=== PATIENT | male | born 1970 | race Caucasian/White ===

== ENCOUNTER 2016-12-23 01:33 | Inpatient (IN) | payer SELFPAY ==
[2016-12-23] VITALS (22 sets, daily range): BP systolic 113–157; BP diastolic 54–110; PULSE 36–84; RESP 14–18; TEMP 97.7–98.9; O2SAT 94–98
[~2016-12-23] VITALS: Ht 177.8 cm; Wt 92.6 kg
[2016-12-23] MEDS ORDERED: LISI40TA PO (01:44)
[2016-12-23] MEDS ORDERED: SODIUM CHLORIDE 0.9% FLUSH 10 ML FLUSH IVF PRN ×2 (02:00→05:00)
[2016-12-23] MEDS ORDERED: ASPIRIN 81 MG CHEW TAB PO ONE (02:00)
[2016-12-23] MEDS: NITROGLYCERIN 0.4 MG SL 25 TABS/BTL SL SCH ×2 (02:07→02:12)
[2016-12-23] MEDS: SODIUM CHLOR 0.9% 1000 ML INJ 1,000 ML IV SCH ×2 (02:10→12:00)
--- NOTE | 2016-12-23 02:12 | RADRPT ---
EXAM DATE/TIME: 12/23/2016 02:05 [facility] COMPARISON: No previous studies available for comparison. INDICATIONS : Chest pain for 1 hour MEDICAL HISTORY : Hypertension. SURGICAL HISTORY : None. ENCOUNTER: Initial ACUITY: 1 day PAIN SCORE: 6/10 LOCATION: Bilateral upper chest FINDINGS: A single view of the chest demonstrates the lungs to be symmetrically aerated without evidence of mas s, infiltrate or effusion. The cardiomediastinal contours are unremarkable. Osseous structures are intact. CONCLUSION: Normal examination. Joe Gutierrez MD on December 23, 2016 at 2:10 Board Certified Radiologist. This report was verified electronically.
[2016-12-23 02:39] LABS: BASOPHIL % 0.4 % (0.0-2.0); EOSINOPHIL # 0.2 TH/MM3 (0-0.4); HEMATOCRIT 51.6 % (39.0-51.0); HEMO FLAGS DIFF FINAL; LYMPH % 40.7 % (9.0-44.0); LYMPHOCYTE # 4.3 TH/MM3 (1.0-4.8); MEAN CELL VOLUME 85.4 FL (80.0-100.0); MEAN CORPUSCULAR HEMOGLOBIN 28.8 PG (27.0-34.0); MEAN CORPUSCULAR HGB CONC 33.7 % (32.0-36.0); MONO % 9.4 % (0.0-8.0); NEUT % 47.5 % (16.0-70.0); PLATELET COUNT 210 TH/MM3 (150-450); RED BLOOD COUNT 6.04 MIL/MM3 (4.50-5.90); RED CELL DISTRIBUTION WIDTH 12.4 % (11.6-17.2); WHITE BLOOD COUNT 10.5 TH/MM3 (4.0-11.0)
[2016-12-23 02:46] LABS: CHLORIDE 106 MEQ/L (98-107); SODIUM (NA) 140 MEQ/L (136-145)
[2016-12-23 02:49] LABS: ANION GAP 8 MEQ/L (5-15); BICARBONATE 26.2 MEQ/L (21.0-32.0); MAGNESIUM 2.4 MG/DL (1.5-2.5)
[2016-12-23 02:50] LABS: BLOOD UREA NITROGEN 17 MG/DL (7-18)
[2016-12-23 02:53] LABS: GLOMERULAR FILTRATION RATE 86 ML/MIN (>89)
[2016-12-23 02:56] LABS: CREATINE KINASE 180 U/L (39-308)
[2016-12-23 03:00] LABS: APTT (PATIENT) 26.9 SEC (24.3-30.1); INTERNATIONAL NORMALIZED RATIO 1.1 RATIO; PROTHROMBIN TIME - PATIENT 11.7 SEC (9.8-11.6)
[2016-12-23 03:08] LABS: CKMB LESS THAN 0.5 NG/ML (0.5-3.6)
[2016-12-23] MEDS ORDERED: KETOROLAC TROMETHAMINE 30 MG/ML (IVP) VIAL IV PUSH ONE (03:45)
--- NOTE | 2016-12-23 03:50 | PD ---
HPI Chief Complaint: Chest Pain Time Seen by Provider: 01:50 Travel History International Travel<30 days: No Contact w/Intl Traveler<30days: No Traveled to known affect area: No History of Present Illness HPI 46-year-old male presents to the emergency department by private transportation for evaluation of chest pain. Patient reports chest pain across the anterior chest with mild radiation to the back associated with shortness of breath. He should states pain awakened him from sleep approximately one hour prior to arrival to the emergency department. Patient does have history of hypertension for which she is prescribed lisinopril and has been taking as prescribed. Patient denies personal history of CAD diabetes dyslipidemia or tobaccoism. Patient does have family history of cardiac disease in his father that began in his 60s. Patient states he also recently traveled from [place] with his family. Patient denies any pain or swelling of the lower extremities at this time. Patient states he did note some soreness of his legs bilaterally while he was in [place] that he attributes it to a lot of walking. Currently chest pain is 8/10 in intensity. Patient also notes some referred discomfort to the upper extremities. Patient denies any nausea vomiting or abdominal pain. Patient has had cardiac evaluation today includes a normal stress test. Patient has taken no medications prior to arrival to the emergency department. [facility] Past Medical History Narrative Medical Hypertension inguinal herniorrhaphy occasional alcohol use; family history CAD; nursing notes reviewed Diminished Hearing: No Hypertension: Yes Inguinal Hernia: Yes Tetanus Vaccination: Unknown Influenza Vaccination: No Past Surgical History Abdominal Surgery: Yes (inguinal hernia repair) Social History Alcohol Use: Yes (socially) Tobacco Use: No Substance Use: No Allergies-Medications (Allergen,Severity, Reaction): Coded Allergies: No Known Allergies (Unverified , 12/23/16) Reported Meds & Prescriptions Reported Meds & Active Scripts Active Reported Lisinopril 40 Mg Tab 40 Mg PO DAILY Review of Systems Except as stated in HPI: all other systems reviewed are Neg General / Constitutional: No: Fever Eyes: No: Visual changes HENT: No: Headaches, Neck Pain Cardiovascular: Positive: Chest Pain or Discomfort, No: Diaphoresis Respiratory: Positive: Shortness of Breath, Pleuritic Pain Gastrointestinal: No: Vomiting, Abdominal Pain Genitourinary: No: Flank Pain Musculoskeletal: Positive: Cramping, No: Myalgias, Arthralgias, Edema Skin: No Rash Neurologic: No: Weakness Psychiatric: No: Anxiety Hematologic/Lymphatic: No: Lymph Node Enlargement Physical Exam Narrative GENERAL: Well-developed well-nourished male in no acute distress no respiratory distress SKIN: Warm and dry. HEAD: Normocephalic. EYES: No scleral icterus. No injection or drainage. NECK: Supple, trachea midline. No JVD or lymphadenopathy. CARDIOVASCULAR: Regular rate and rhythm without murmurs, gallops, or rubs. RESPIRATORY: Breath sounds equal bilaterally. No accessory muscle use. GASTROINTESTINAL: Abdomen soft, non-tender, nondistended. MUSCULOSKELETAL: No cyanosis, or edema. BACK: Nontender without obvious deformity. No CVA tenderness. Data Data Last Documented VS Vital Signs Date Time Temp Pulse Resp B/P (MAP) Pulse Ox O2 Delivery O2 Flow Rate FiO2 12/23/16 04:30 97.7 62 18 119/72 (88) 95 Room Air Orders Orders Electrocardiogram (12/23/16 01:50) Basic Metabolic Panel (Bmp) (12/23/16 01:50) B-Type Natriuretic Peptide (12/23/16 01:50) Ckmb (Isoenzyme) Profile (12/23/16 01:50) Complete Blood Count With Diff (12/23/16 01:50) D-Dimer (12/23/16 01:50) Magnesium (Mg) (12/23/16 01:50) Prothrombin Time / Inr (Pt) (12/23/16 01:50) Act Partial Throm Time (Ptt) (12/23/16 01:50) Troponin I (12/23/16 01:50) Chest, Single Ap (12/23/16 01:50) Ecg Monitoring (12/23/16 01:50) Bilateral Bp Monitoring (12/23/16 01:50) Iv Access Insert/Monitor (12/23/16 01:50) Oximetry (12/23/16 01:50) Oxygen Administration (12/23/16 01:50) Aspirin Chew (Aspirin Chew) (12/23/16 02:00) Sodium Chloride 0.9% Flush (Ns Flush) (12/23/16 02:00) Nitroglycerin Sl (Nitrostat Sl) (12/23/16 02:00) Sodium Chlor 0.9% 1000 Ml Inj (Ns 1000 M (12/23/16 02:00) CKMB (12/23/16 01:45) CKMB% (12/23/16 01:45) Ketorolac Inj (Toradol Inj) (12/23/16 03:45) Admit Order (Ed Use Only) (12/23/16 ) ^ Saline Lock (12/23/16 04:49) Resp Oxygen Juliano C Titrat 1-4 L (12/23/16 ) Notify Dr: Other (12/23/16 04:49) Sodium Chloride 0.9% Flush (Ns Flush) (12/23/16 09:00) Sodium Chloride 0.9% Flush (Ns Flush) (12/23/16 05:00) Labs Laboratory Tests Test 12/23/16 01:45 White Blood Count 10.5 TH/MM3 Red Blood Count 6.04 MIL/MM3 Hemoglobin 17.4 GM/DL Hematocrit 51.6 % Mean Corpuscular Volume 85.4 FL Mean Corpuscular Hemoglobin 28.8 PG Mean Corpuscular Hemoglobin Concent 33.7 % Red Cell Distribution Width 12.4 % Platelet Count 210 TH/MM3 Mean Platelet Volume 8.9 FL Neutrophils (%) (Auto) 47.5 % Lymphocytes (%) (Auto) 40.7 % Monocytes (%) (Auto) 9.4 % Eosinophils (%) (Auto) 2.0 % Basophils (%) (Auto) 0.4 % Neutrophils # (Auto) 5.0 TH/MM3 Lymphocytes # (Auto) 4.3 TH/MM3 Monocytes # (Auto) 1.0 TH/MM3 Eosinophils # (Auto) 0.2 TH/MM3 Basophils # (Auto) 0.0 TH/MM3 CBC Comment DIFF FINAL Differential Comment Prothrombin Time 11.7 SEC Prothromb Time International Ratio 1.1 RATIO Activated Partial Thromboplast Time 26.9 SEC D-Dimer Quantitative (PE/DVT) 0.28 MG/L FEU Blood Urea Nitrogen 17 MG/DL Creatinine 0.94 MG/DL Random Glucose 142 MG/DL Calcium Level 8.9 MG/DL Magnesium Level 2.4 MG/DL Sodium Level 140 MEQ/L Potassium Level 4.0 MEQ/L Chloride Level 106 MEQ/L Carbon Dioxide Level 26.2 MEQ/L Anion Gap 8 MEQ/L Estimat Glomerular Filtration Rate 86 ML/MIN Total Creatine Kinase 180 U/L Creatine Kinase MB LESS THAN 0.5 NG/ML Troponin I 0.03 NG/ML B-Type Natriuretic Peptide 0 PG/ML MDM Medical Decision Making Medical Screen Exam Complete: Yes Emergency Medical Condition: Yes Medical Record Reviewed: Yes Interpretation(s) EKG normal sinus rhythm rate [address] elevation injury or ischemic changes no ectopy noted; normal axis and intervals Troponin I: 0.03, not elevated; CK: 180, not elevated; BNP: 0 d-dimer: 0.28, not elevated Last Impressions Chest X-Ray 12/23/16 0150 Signed Impressions: Service Date/Time: Friday, December 23, 2016 02:05 - CONCLUSION: Normal examination. Joe Gutierrez MD CBC & BMP Diagram 12/23/16 01:45 Calcium Level 8.9, Magnesium Level 2.4 Vital Signs Date Time Temp Pulse Resp B/P (MAP) Pulse Ox O2 Delivery O2 Flow Rate FiO2 12/23/16 04:30 97.7 62 18 119/72 (88) 95 Room Air 12/23/16 03:30 76 18 135/73 (93) 95 Room Air 12/23/16 02:22 70 17 138/73 (94) 94 Room Air 12/23/16 02:18 44 17 117/54 (75) 97 Room Air 12/23/16 02:13 36 17 118/54 (75) 96 Room Air 12/23/16 02:06 84 18 154/93 (113) 94 Room Air 12/23/16 02:00 78 140/90 (107) 137/97 (110) 12/23/16 01:42 97 Room Air 12/23/16 01:42 98.9 72 18 157/110 (126) Differential Diagnosis Chest pain, ACS, myocardial infarction, arrhythmia, aortic dissection, PE, musculoskeletal pain, atypical cholecystitis Narrative Course 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 EKG shows no acute ST elevation or injury pattern Patient given aspirin 162 mg by mouth Patient administered times one sublingual nitroglycerin for chest pain 8/10 in intensity decreased to 3/10 intensity however patient had a vasovagal associated event after receiving nitroglycerin causing him to have sinus bradycardia and hypotension patient was placed supine given fluid bolus and had quick recovery to sinus rhythm with normal range blood pressure It is 3:45 AM labs values are found to be grossly within normal range specifically troponin I is 0.03 and CK is 180; CBC is remarkable for elevated hemoglobin hematocrit 17.4/51.6%; random glucose 142; d-dimer is 0.28 not elevated; chest x-ray reveals no acute abnormality; Patient is aware of lab results and pain free at this time . Physician Communication Physician Communication will obs admit to [facility] discussed with [place] Diagnosis Primary Impression: Chest pain Qualified Codes: R07.2 - Precordial pain Admitting Information Admitting Physician Requests: Observation Jessy Bradshaw MD Dec 23, 2016 03:50
[2016-12-23] MEDS ORDERED: SODIUM CHLORIDE 0.9% FLUSH 10 ML FLUSH IV FLUSH PRN (05:00)
[2016-12-23] MEDS ORDERED: CETI10 PO (05:32)
[2016-12-23 05:49] LABS: CREATINE KINASE 163 U/L (39-308)
[2016-12-23 06:04] LABS: CKMB 4.2 NG/ML (0.5-3.6)
[2016-12-23] MEDS ORDERED: HEPARIN-D5W 25,000 U/250 ML 250 ML IV PRN (06:21)
[2016-12-23 06:54] LABS: HEMATOCRIT 46.9 % (39.0-51.0); MEAN CELL VOLUME 85.3 FL (80.0-100.0); MEAN CORPUSCULAR HEMOGLOBIN 28.7 PG (27.0-34.0); MEAN CORPUSCULAR HGB CONC 33.7 % (32.0-36.0); PLATELET COUNT 199 TH/MM3 (150-450); RED CELL DISTRIBUTION WIDTH 12.5 % (11.6-17.2); REVIEW FLAG FINAL; WHITE BLOOD COUNT 10.1 TH/MM3 (4.0-11.0)
[2016-12-23 07:05] LABS: APTT (PATIENT) 21.2 SEC (24.3-30.1); PROTHROMBIN TIME - PATIENT 10.5 SEC (9.8-11.6)
--- NOTE | 2016-12-23 07:53 | PD.CONS ---
HPI Service CV Consult Requested By Reason for Consult chest pain Primary Care Physician No Primary Care Physician History of Present Illness Here with HTN admitted for chest pain. He states he was awoken at 1230 this morning with retrosternal chest pressure. He also had bilateral upper extremity numbness. He did not fell well. This lasted about one hour. He had an cardiac evaluation for shortness of breath on exertion about 5 years ago. (Narayan Shelton) Review of Systems Consitutional: DENIES: Fatigue, Fever, Chills, Weight gain, Weight loss Eyes: DENIES: Amaurosis Fugax, Change in vision HEENT: DENIES: Lightheadedness, Change in hearing Respiratory: DENIES: See HPI, Cough, Snoring, Shortness of breath, Wheezing, Sputum production Cardiovascular: COMPLAINS OF: Chest pain Gastrointestinal: DENIES: Nausea, Vomiting, Change in bowel habits, Reflux, Bloody stools, Melena Genitourinary: DENIES: Urinary incontinence, Difficulty voiding Integumentary: DENIES: Rash Neurologic: DENIES: Tingling or numbness, Memory problems, Poor Balance, Stroke symptoms Musculoskeletal: DENIES: Joint pain, Muscle pain, Limited range of motion, Back pain Psychiatric: DENIES: Anxiety, Depression, Sleep disturbances Hematologic: DENIES: Bruising tendencies, Bleeding tendencies Endocrine: DENIES: Weight gain, Weight loss, Thyroid disease (Narayan Shelton ) Past Family Social History Allergies: Coded Allergies: acetaminophen (Verified Allergy, Intermediate, Nausea/Vomiting, 12/23/16) hydrocodone (Verified Allergy, Intermediate, Nausea/Vomiting, 12/23/16) Past Medical History see HPI Past Surgical History herniorrhaphy Reported Medications Reported Meds & Active Scripts Active Reported Cetirizine (Cetirizine HCl) 10 Mg Tab 10 Mg PO DAILY Lisinopril 40 Mg Tab 40 Mg PO DAILY Active Ordered Medications Current Medications Medications (Trade) Dose Ordered Sig/Chloe Route Start Time Stop Time Status Last Admin Sodium Chloride 1,000 ml @ 100 mls/hr Q10H IV 12/23/16 02:00 12/23/16 02:10 (NS Flush) 2 ml UNSCH PRN IV FLUSH 12/23/16 05:00 (NS Flush) 2 ml BID IV FLUSH 12/23/16 09:00 12/23/16 07:41 Heparin Sodium/ Dextrose 250 ml @ 11.112 mls/ hr [id number] PRN IV 12/23/16 06:21 12/23/16 07:41 Family History father CA age 60 Social History never smoker occasional EtOH denies substance abuse (Narayan Shelton) Physical Exam Vital Signs Vital Signs Date Time Temp Pulse Resp B/P (MAP) Pulse Ox O2 Delivery O2 Flow Rate FiO2 12/23/16 06:10 97.9 64 18 132/80 (97) 95 Room Air 12/23/16 05:10 78 17 135/71 (92) 95 Room Air 12/23/16 05:06 95 21 12/23/16 04:30 97.7 62 18 119/72 (88) 95 Room Air 12/23/16 03:30 76 18 135/73 (93) 95 Room Air 12/23/16 02:22 70 17 138/73 (94) 94 Room Air 12/23/16 02:18 44 17 117/54 (75) 97 Room Air 12/23/16 02:13 36 17 118/54 (75) 96 Room Air 12/23/16 02:06 84 18 154/93 (113) 94 Room Air 12/23/16 02:00 78 140/90 (107) 137/97 (110) 12/23/16 01:42 97 Room Air 12/23/16 01:42 98.9 72 18 157/110 (126) Physical Exam GENERAL: Well-nourished, well-developed patient in no apparent distress. NECK: No JVD. No carotid bruit. CARDIOVASCULAR: Regular rate and rhythm. S1/S2 no murmur, rub, or gallop. RESPIRATORY: No accessory muscle use. Clear to auscultation. Breath sounds equal bilaterally. GASTROINTESTINAL: Abdomen soft, non-tender, nondistended. MUSCULOSKELETAL: Extremities without clubbing, cyanosis, or edema. Laboratory Laboratory Tests Test 12/23/16 01:45 12/23/16 05:06 12/23/16 06:44 White Blood Count 10.5 10.1 Red Blood Count 6.04 5.50 Hemoglobin 17.4 15.8 Hematocrit 51.6 46.9 Mean Corpuscular Volume 85.4 85.3 Mean Corpuscular Hemoglobin 28.8 28.7 Mean Corpuscular Hemoglobin Concent 33.7 33.7 Red Cell Distribution Width 12.4 12.5 Platelet Count 210 199 Mean Platelet Volume 8.9 8.6 Neutrophils (%) (Auto) 47.5 Lymphocytes (%) (Auto) 40.7 Monocytes (%) (Auto) 9.4 Eosinophils (%) (Auto) 2.0 Basophils (%) (Auto) 0.4 Neutrophils # (Auto) 5.0 Lymphocytes # (Auto) 4.3 Monocytes # (Auto) 1.0 Eosinophils # (Auto) 0.2 Basophils # (Auto) 0.0 CBC Comment DIFF FINAL Differential Comment Prothrombin Time 11.7 10.5 Prothromb Time International Ratio 1.1 1.0 Activated Partial Thromboplast Time 26.9 21.2 D-Dimer Quantitative (PE/DVT) 0.28 Blood Urea Nitrogen 17 Creatinine 0.94 Random Glucose 142 Calcium Level 8.9 Magnesium Level 2.4 Sodium Level 140 Potassium Level 4.0 Chloride Level 106 Carbon Dioxide Level 26.2 Anion Gap 8 Estimat Glomerular Filtration Rate 86 Total Creatine Kinase 180 163 Creatine Kinase MB LESS THAN 0.5 4.2 Troponin I 0.03 1.12 B-Type Natriuretic Peptide 0 (Narayan Shelton) Result Diagram: 12/23/16 0644 12/23/16 0145 Assessment and Plan Problem List: (1) NSTEMI (non-ST elevated myocardial infarction) ICD Codes: I21.4 - Non-ST elevation (NSTEMI) myocardial infarction Status: Acute (2) Chest pain ICD Codes: R07.9 - Chest pain, unspecified Status: Acute Assessment and Plan Cardiac evaluation reveals elevated troponin. He does have both typical and atypical symptoms. We will transfer him to [facility] [place] Main and plan coronary angiogram. Further recommendation will depend on that outcome. His blood pressure is well controlled (Narayan Shelton) Assessment and Plan suggestive symptoms elevated troponin NSTEMI plan for [facility] (Joe Jin MD) Problem Qualifiers (1) Chest pain: Qualified Codes: R07.2 - Precordial pain Narayan Shelton Dec 23, 2016 07:53 Joe Jin MD Dec 23, 2016 09:31
[2016-12-23 08:13] LABS: CREATINE KINASE 158 U/L (39-308)
[2016-12-23 08:26] LABS: CKMB 5.7 NG/ML (0.5-3.6)
[2016-12-23] MEDS ORDERED: SODIUM CHLORIDE 0.9% FLUSH 10 ML FLUSH IV FLUSH SCH ×2 (09:00)
--- NOTE | 2016-12-23 11:42 | HHI.HP ---
[facility] No Primary Care Physician Admission Diagnosis Chest pain Diagnoses: Chief Complaint: Chest pain Travel History International Travel<30 Days: No Contact w/Intl Traveler <30 Da: No Traveled to Known Affected Are: No History of Present Illness Is a 46-year-old male with history of hypertension who presented to emergency department with acute onset of chest pain at 1:00 this morning. He states that the pain felt like a pressure in the center of his chest. It woke him from sleep. Pain did not radiate. It resolved after he received nitroglycerin in the ER. No chest pain currently. Denies recent diaphoretic episodes, dyspnea. Recently traveled back from [place]. He has had some pain in both of his lower legs. Review of Systems Constitutional: DENIES: Fever, Chills, Night Sweats Eyes: DENIES: Blurred vision, Vision loss Ears, nose, mouth, throat: DENIES: Hearing loss Respiratory: DENIES: Cough, Wheezing, Sputum production, Shortness of breath Cardiovascular: COMPLAINS OF: Chest pain, DENIES: Palpitations, Dyspnea on Exertion, Lower Extremity Edema Gastrointestinal: DENIES: Abdominal pain, Constipation, Diarrhea, Nausea, Vomiting Genitourinary: DENIES: Urinary frequency, Urinary incontinence, Urgency, Hematuria, Dysuria, Nocturia Musculoskeletal: DENIES: Joint pain, Muscle aches Integumentary: DENIES: Pruritus, Rash Hematologic/lymphatic: DENIES: Bruising Neurologic: DENIES: Headache Past Family Social History Past Medical History Hypertension Past Surgical History Hernia repair Reported Medications Lisinopril 40 mg daily Allergies: Coded Allergies: acetaminophen (Verified Allergy, Intermediate, Nausea/Vomiting, 12/23/16) hydrocodone (Verified Allergy, Intermediate, Nausea/Vomiting, 12/23/16) Family History Father has history heart disease, diabetes. Mother had ovarian cancer. Social History Denies tobacco or illicit drug use. Reports social alcohol use. Physical Exam Vital Signs Vital Signs Date Time Temp Pulse Resp B/P (MAP) Pulse Ox O2 Delivery O2 Flow Rate FiO2 12/23/16 09:15 12/23/16 08:40 67 14 147/85 (105) 98 Room Air 12/23/16 06:10 97.9 64 18 132/80 (97) 95 Room Air 12/23/16 05:10 78 17 135/71 (92) 95 Room Air 12/23/16 05:06 95 21 12/23/16 04:30 97.7 62 18 119/72 (88) 95 Room Air 12/23/16 03:30 76 18 135/73 (93) 95 Room Air 12/23/16 02:22 70 17 138/73 (94) 94 Room Air 12/23/16 02:18 44 17 117/54 (75) 97 Room Air 12/23/16 02:13 36 17 118/54 (75) 96 Room Air 12/23/16 02:06 84 18 154/93 (113) 94 Room Air 12/23/16 02:00 78 140/90 (107) 137/97 (110) 12/23/16 01:42 97 Room Air 12/23/16 01:42 98.9 72 18 157/110 (126) Physical Exam GENERAL: Well-nourished, well-developed male in no acute distress. HEENT: Normocephalic, atraumatic. Pupils equal, round and reactive. Extraocular movements intact. No scleral icterus. No injection or drainage. Oropharynx is clear. Mucous membranes are moist. CARDIOVASCULAR: Regular rate and rhythm without murmurs, gallops, or rubs. RESPIRATORY: Clear to auscultation. No wheezes, rales, or rhonchi. Breathing is non-labored. GASTROINTESTINAL: Abdomen soft, non-tender, nondistended. EXTREMITIES: No lower extremity edema. No calf tenderness. PSYCH: Alert and oriented x 3. Laboratory Laboratory Tests Test 12/23/16 01:45 12/23/16 05:06 12/23/16 06:44 12/23/16 07:45 White Blood Count 10.5 10.1 Red Blood Count 6.04 5.50 Hemoglobin 17.4 15.8 Hematocrit 51.6 46.9 Mean Corpuscular Volume 85.4 85.3 Mean Corpuscular Hemoglobin 28.8 28.7 Mean Corpuscular Hemoglobin Concent 33.7 33.7 Red Cell Distribution Width 12.4 12.5 Platelet Count 210 199 Mean Platelet Volume 8.9 8.6 Neutrophils (%) (Auto) 47.5 Lymphocytes (%) (Auto) 40.7 Monocytes (%) (Auto) 9.4 Eosinophils (%) (Auto) 2.0 Basophils (%) (Auto) 0.4 Neutrophils # (Auto) 5.0 Lymphocytes # (Auto) 4.3 Monocytes # (Auto) 1.0 Eosinophils # (Auto) 0.2 Basophils # (Auto) 0.0 CBC Comment DIFF FINAL Differential Comment Prothrombin Time 11.7 10.5 Prothromb Time International Ratio 1.1 1.0 Activated Partial Thromboplast Time 26.9 21.2 D-Dimer Quantitative (PE/DVT) 0.28 Blood Urea Nitrogen 17 Creatinine 0.94 Random Glucose 142 Calcium Level 8.9 Magnesium Level 2.4 Sodium Level 140 Potassium Level 4.0 Chloride Level 106 Carbon Dioxide Level 26.2 Anion Gap 8 Estimat Glomerular Filtration Rate 86 Total Creatine Kinase 180 163 158 Creatine Kinase MB LESS THAN 0.5 4.2 5.7 Troponin I 0.03 1.12 2.51 B-Type Natriuretic Peptide 0 Result Diagram: 12/23/16 0644 12/23/16 0145 Imaging Last Impressions Chest X-Ray 12/23/16 0150 Signed Impressions: Service Date/Time: Friday, December 23, 2016 02:05 - CONCLUSION: Normal examination. MD Dante Lópezi VTE Risk Assessment Caprini VTE Risk Assessment: Mod/High Risk (score >= 2) Caprini Risk Assessment Model Point Value = 1 Point Value = 2 Point Value = 3 Point Value = 5 Age 41-60 Minor surgery BMI > 25 kg/m2 Swollen legs Varicose veins or History of unexplained or recurrent spontaneous Oral contraceptives or hormone replacement Sepsis (< 1 month) Serious lung disease, including pneumonia (< 1 month) Abnormal pulmonary function Acute myocardial infarction Congestive heart failure (< 1 month) History of inflammatory bowel disease Medical patient at bed rest Age 61-74 Arthroscopic surgery Major open surgery (> 45 min) Laparoscopic surgery (> 45 min) Malignancy Confined to bed (> 72 hours) Immobilizing plaster cast Central venous access Age >= 75 History of VTE Family history of VTE Factor V Leiden Prothrombin [id number] Lupus anticoagulant Anticardiolipin antibodies Elevated serum homocysteine Heparin-induced thrombocytopenia Other congenital or acquired thrombophilia Stroke (< 1 month) Elective arthroplasty Hip, pelvis, or leg fracture Acute spinal cord injury (< 1 month) Prophylaxis Regimen Total Risk Factor Score Risk Level Prophylaxis Regimen 0-1 Low Early ambulation 2 Moderate Order ONE of the following: *Sequential Compression Device (SCD) *Heparin 5000 units SQ BID 3-4 Higher Order ONE of the following medications: *Heparin 5000 units SQ TID *Enoxaparin/Lovenox 40 mg SQ daily (WT < 150 kg, CrCl > 30 mL/min) *Enoxaparin/Lovenox 30 mg SQ daily (WT < 150 kg, CrCl > 10-29 mL/min) *Enoxaparin/Lovenox 30 mg SQ BID (WT < 150 kg, CrCl > 30 mL/min) AND/OR *Sequential Compression Device (SCD) 5 or more Highest Order ONE of the following medications: *Heparin 5000 units SQ TID (Preferred with Epidurals) *Enoxaparin/Lovenox 40 mg SQ daily (WT < 150 kg, CrCl > 30 mL/min) *Enoxaparin/Lovenox 30 mg SQ daily (WT < 150 kg, CrCl > 10-29 mL/min) *Enoxaparin/Lovenox 30 mg SQ BID (WT < 150 kg, CrCl > 30 mL/min) AND *Sequential Compression Device (SCD) Assessment and Plan Problem List: (1) NSTEMI (non-ST elevated myocardial infarction) ICD Code: I21.4 - Non-ST elevation (NSTEMI) myocardial infarction Status: Acute (2) Hypertension ICD Code: I10 - Essential (primary) hypertension Status: Chronic (3) Chest pain ICD Code: R07.9 - Chest pain, unspecified Status: Acute Assessment and Plan 1. NSTEMI: Patient presented with chest pain. Troponin elevated. Chest pain resolved after nitro. Appreciate cardiology recommendations. Planning for catheterization today. On heparin drip. Continue aspirin. Patient had recent travel from [place], but has not had lower extremity swelling. D-Dimer is negative. 2. Hypertension: Resume lisinopril. 3. Lower extremity pain: Check ultrasound. 4. DVT prophylaxis: Heparin drip. Problem Qualifiers (1) Chest pain: Qualified Codes: R07.2 - Precordial pain El Smith MD Dec 23, 2016 11:42
--- NOTE | 2016-12-23 11:57 | EKG ---
Date Performed: 12/23/2016 Time Performed: 05:06:53 PTAGE: 46 years EKG: SINUS BRADYCARDIA BORDERLINE ECG Compared to prior tracing no significant change PREVIOUS TRACING : 12/23/2016 01.52 DOCTOR: Rajan Henao Interpretating Date/Time 12/23/2016 11:50:12
--- NOTE | 2016-12-23 11:57 | EKG ---
Date Performed: 12/23/2016 Time Performed: 01:52:50 PTAGE: 46 years EKG: Sinus rhythm WITH SINUS ARRHYTHMIA NORMAL ECG NO PREVIOUS TRACING DOCTOR: Rajan Henao Interpretating Date/Time 12/23/2016 11:50:04
[2016-12-23 14:43] LABS: APTT (PATIENT) 30.1 SEC (24.3-30.1)
[2016-12-23] MEDS ORDERED: HEPARIN-NS/PF INJ 1,000 ML ONE (14:49)
[2016-12-23] MEDS ORDERED: MIDAZOLAM HCL 2 MG/2 ML VIAL ONE (14:50)
[2016-12-23] MEDS ORDERED: HEPARIN SODIUM - IV 10,000 UNITS/10 ML VIAL ONE (14:50)
--- NOTE | 2016-12-23 15:05 | RADRPT ---
EXAM DATE/TIME: 12/23/2016 14:08 [facility] COMPARISON: No previous studies available for comparison. INDICATIONS : Bilateral leg pain. MEDICAL HISTORY : Hypertension. Myocardial infarction. Inguinal hernia. SURGICAL HISTORY : Inguinal hernia repair. ENCOUNTER: Initial ACUITY: PAIN SCORE: 2/10 LOCATION: Bilateral legs. TECHNIQUE: Venous ultrasound of the left and right leg was performed from the inguinal ligament to the proximal calf. Real-time, color Doppler and spectral tracing, compression and augmentation techniques were us ed. FINDINGS: RIGHT LEG: There is normal compressibility of the deep venous system from the inguinal region to the proximal ca lf. No echogenic clot is seen in the lumen of the common femoral, femoral, popliteal, and posterior tibial veins. There is a normal response of the venous system to proximal and distal augmentation an d respiration. LEFT LEG: There is normal compressibility of the deep venous system from the inguinal region to the proximal ca lf. No echogenic clot is seen in the lumen of the common femoral, femoral, popliteal, and posterior tibial veins. There is a normal response of the venous system to proximal and distal augmentation an d respiration. CONCLUSION: 1. No sonographic evidence for lower extremity DVT. Jovan Santiago MD on December 23, 2016 at 15:03 Board Certified Radiologist. This report was verified electronically.
[2016-12-23] MEDS ORDERED: BACITRACIN OINT 0.9 GM PKT TOP ONE (15:30)
[2016-12-23] MEDS ORDERED: MISC INFORMATION XX ONE (15:30)
--- NOTE | 2016-12-23 15:37 | CATHPROC ---
Biglion HIS Report Study Information Study Number Admission Scheduled Start Study Start [id number] Dec 23 2016 4:51AM 12/23/2016 Dec 23 2016 2:54PM [place] [facility] Cardiac Catheterization Admit Source Facility Department Emergency department [facility] - Flue Gas Analyst Physician and Clinical Staff Initial Joe Rhodes Produce Team Lead Ernie Tucker RN Produce Team Lead Sana Garnett RN Recorder Cheyenne Spaulding,RT(R) (BS) Scrub Onesimo ChungRT(R) Procedures Performed Procedure Location (Site) Vessel Name Coronary Angiograms RCA Right Coronary L Heart Cath Equipment Time Brine Maker Description Size Mfg Part Number Used/Scraped TRANSDUCER, TRUWAVE [id number] 15:00 xPeerient BESS * Used W/STOCKCOCK *[id number] *[id number] [id number] *[id number] [id number] *[id number] 534-623T *[id number] 15:00 Carbon Salon PACK, CCL CUSTOM * Used *[id number] 15:00 Carbon Salon SUPPORT, ARTERIAL ADULT [id number] *[id number] Used [id number] 15:00 Pileus Software PACER PEN, SKIN DUAL W/ RULER * Used *[id number] BAND, RADIAL COMPRESSION TR [id number] 15:25 Kidos 24CM Used SHORT 24 *[id number] SHEATH, FR6 RADIAL PRELUDE 15:00 Kidos FR 6 [id number] Used EASE 11CM [id number] 15:00 Kidos WIRE, EXCHANGE 260CM 3MMJ 260CM Used *[id number] 15:00 NYCOMED OMNIPAQUE, 350 MG, 150ML 150ML [id number] Used [id number] 15:00 [employer] BLANKET,WARM AIR CCL * Used *[id number] History: Allergies Allergy Reaction hydrocodone Nausea/Vomiting acetaminophen Nausea/Vomiting History: Risk Factors Family History of Hypertension Dyslipidemia Previous NE Previous Heart Failure Premature CAD Yes No Yes No No Prior Valve Prior PCI Prior CABG Surgery No No No Cerebrovascular Peripheral Artery Chronic Lung On Dialysis Diabetes Disease Disease Disease No No No No No History: Symptoms/Diagnosis Selection Items Chest pain History: Stress Tests Stress or Imaging Studies Performed Yes Standard Exercise Stress Test No Stress Echo No Stress Test SPECT Stress Test SPECT Result Yes Negative Stress Test CMR No Cardiac CTA Coronary Calcium Score No No History: Other Current Smoker No Labs Hgb (g/dl) Hct (%) WBC (l/cumm) Platelets (thousands) 11.60-17.00 35.00-51.00 4.00-11.00 150.00-450.00 15.5 46.9 10.1 199 Glucose (mg/dl) BUN (mg/dl) Creatinine (mg/dl) BUN:Creatinine (1:x) 74.00-106.00 7.00-18.00 0.50-1.30 10.00-20.00 147 17 0.9 18.9 Na (meq/l) K (meq/l) 136.00-145.00 3.50-5.10 140 4 INR (PTT:PT) 0.90-1.10 1 Troponin I (ng/ml) CPK-MB (ng/ML) 0.02-0.05 0.50-3.60 2.51 5.7 Medication Medication Total Dose (Bolus/Oral) Medication Total Dosage/Unit 1% XYLOCAINE 1 mL FENTANYL 50 mcg NTG (IC) 200 mcg VERSED 2 mg Medications (Bolus/Oral) Medication Time Given Dosage/Unit Administered By Reason FENTANYL 12/23/2016 3:13:45 PM 50 mcg Ernie Tucker 50 mcg FENTANYL given in lab by Ernie Tucker RN in Left Antecubital via Peripheral IV. VERSED 12/23/2016 3:14:39 PM 2 mg Ernie Tucker 2 mg VERSED given in lab by Ernie Tucker RN in Left Antecubital via Peripheral IV. 1% XYLOCAINE 12/23/2016 3:14:49 PM 1 mL Joe Jin 1 mL 1% XYLOCAINE given in lab by Joe Jin in Right Radial via Subcutaneous. NTG (IC) 12/23/2016 3:16:05 PM 200 mcg Joe Jin 200 mcg NTG (IC) given in lab by Joe Jin in Right Radial. Medication (Drip) Medication Time Given Dosage/Unit Concentration/Unit Diluent (ml) Solution IV Solutions 12/23/2016 3:02:01 PM 0 mL (IV) 500 NaCl .9 IV Solutions given in lab by Ernie Tucker RN in Left Antecubital via Peripheral IV. Pump/Drip Flow = 100 ml/hr using NaCl .9. Initial Case Assessment Cardiovascular HR Rhythm NIBP Chest Pain 70 reg 139/91 0 Edema Present Skin color Skin None Normal Warm Dry Circulatory - Right Pulses Dorsalis Pedis Femoral Radial 2 2 2 Scale (0,1,2,3,4,d) Scale (0,1,2,3,4,d) Circulatory - Lower Extremities Color Lower Right Color Lower Left Normal Normal Neurological State Oriented to time-place- Alert Moves all extremities person Respiration - General Respiration Rate SpO2 (%) (B/min) 20 98 Chronological Log Time Study Chronological Log 14:48:10 Patient arrived via Bed. 14:48:17 Patient Name, D.O.B, / Armband Verified By R.N. 14:48:20 Consent signed by the physician and the patient and verified by the Flue Gas Analyst staff. 14:54:23 Pre-op and post- op instructions given; patient acknowledges understanding of instructions. 14:54:25 Verbal Stimulation=2 Physical Stimulation=2 Airway=2 Respiration=2 TOTAL=8. (0=absent, 1=li mited, 2=present) 14:54:26 Presedation assessment performed by Flue Gas Analyst RN. 14:54:30 Allens test performed on the right radial and ulnar artery. Vitals capture started with the following parameters, Patient=Adult, Interval=5 min, Initial Pr jdmcrt=389 mmHg, 15:01:28 Deflation Rate=5 mmHg, Cuff placed on Left Arm 15:01:54 Patient has been NPO for More than 6Hrs. 15:01:57 Skin Breakdown none per family 15:01:59 Patient Warmer Placed on the Table. 15:02:00 Veronica Prominences Protected 15:02:01 A # 20 IV was noted in the Antecubital (left). Grade = 0 IV Solutions given in lab by Ernie Tucker, RN in Left Antecubital via Peripheral IV. Pump/Drip Flow = 100 ml/hr using 15:02:01 NaCl .9. 15:02:02 History and physical on the chart or being dictated. Assessment: Initial Case, HR=70 BPM, Rhythm=reg, BTWI=180/91 mmhg, Chest Pain=0, Edema=None, Co magui=Normal, Skin = Warm, Dry Right Pulses: River Ped=2, Femoral=2, Radial=2 15:02:08 Lower Right Extremities: Color=Normal Lower Left Extremities: Color=Normal Neurological: State=Alert, Ox3, SYKES Respiration: Resp=20 B/min, SpO2=98 % 15:02:10 Right groin and right radial prepped with 2% chlorhexidine, and with a 3 min. waiting time. 15:02:46 HR=62 bpm, MEXL=075/91 mmhg, SpO2=98.0 %, Resp=13 B/min, Pain=0, Donnie=10, Painting=2 15:04:31 Reference ECG taken 15:07:06 HR=61 bpm, EXMY=668/94 mmhg, Resp=16 B/min 15:07:55 MD paged 15:09:32 MD arrived 15:11:22 Pressure channel 2 zeroed. 15:12:07 HR=63 bpm, HNIA=744/90 mmhg, SpO2=97.0 %, Resp=9 B/min, Pain=0, Donnie=10, Painting=2 Time Out. Correct patient, correct procedure,correct physician, power injector not loaded with contrast with surgical 15:12:40 team present. Time Out Concurred by MD, individual staff in procedure 15:12:59 Case Start 15:13:45 50 mcg FENTANYL given in lab by Ernie Tucker, RN in Left Antecubital via Peripheral IV. 15:14:39 2 mg VERSED given in lab by Ernie Tucker RN in Left Antecubital via Peripheral IV. 15:14:49 1 mL 1% XYLOCAINE given in lab by Joe Jin in Right Radial via Subcutaneous. 15:15:35 Access site was right Radial Artery. A SHEATH, FR6 RADIAL PRELUDE EASE 11CM FR 6 was advanced into the Radial (right) using the Perc utaneous 15:15:45 technique. 15:16:05 200 mcg NTG (IC) given in lab by Joe Jin in Right Radial. 15:17:08 HR=75 bpm, MFKL=337/80 mmhg, SpO2=96 %, Resp=16 B/min, Pain=0, Donnie=10, Painting=2 A JR 3.5 INFINITI CATHETER FR 6 was advanced over a wire. OMNIPAQUE, 350 MG, 150ML 150ML was us ed for 15:17:32 injections. Recorded Pressure: LV, HR=89, Condition=Condition 1 15:18:24 (Left Ventricle) LV 119/5/9 Recorded Pressure: LV, Ao, HR=71, Condition=Condition 1 15:18:28 (Left Ventricle) LV 120/0/11, (Aorta) Ao 119/78/99 15:19:11 The RCA was injected and visualized at various angles. OMNIPAQUE, 350 MG, 150ML 150ML used . Recorded Pressure: Ao, HR=73, Condition=Condition 1 15:19:31 (Aorta) Ao 112/84/98 After removing the current catheter a JL 5.0 INFINITI CATHETER FR 6 was advanced over a WIRE, E XCHANGE 260CM 15:20:26 3MMJ 260CM. 15:22:05 HR=81 bpm, GRLG=097/85 mmhg, SpO2=93.0 %, Resp=9 B/min, Pain=0, Donnie=10, Painting=2 15:22:36 The RCA was injected and visualized at various angles. OMNIPAQUE, 350 MG, 150ML 150ML used . 15:24:03 Catheter was removed 15:24:07 Case End 15:25:19 Catheter(s) removed without difficulty 15:25:24 No case complications noted. 15:25:26 Cine recording checked. 15:25:39 Bedside Report will be given. 15:25:43 Contrast Scanned 15:25:48 A Left Heart Cath was performed. Radial Compression Device Used. 15 mLs of air placed in BAND, RADIAL COMPRESSION TR SHORT 24 2 4CM. Affected 15:26:01 hand 98 % O2 saturation. End Study - Contrast Media Used In Study Contrast Total Opened (mL) Total Used (mL) Total Wasted (mL) Omnipaque 55 55 0 End Study - Maximum Contrast Load Max Contrast Load (mL) 514.4 End Study - Radiation Exposure Fluoro Time (minutes) 1.8 End Study - Sheaths Sheaths Pulled By Sheath Hold Time (min) Onesimo Chung End Study - Patient Disposition Complications Transferred To Interventional Outcome No Telemetry Bed No attempt made
[2016-12-23] MEDS ORDERED: NITROGLYCERIN INJ 5 ML ONE (15:49)
[2016-12-23] MEDS ORDERED: IOHEXOL 350 MG/ML 100 ML BTL (for Cath Lab) OTHER ONE (16:45)
--- NOTE | 2016-12-23 17:49 | MA ---
cc: CHRISTINA BATEMAN DATE: 12/23/2016 INDICATION Chest pain. PROCEDURE PERFORMED 1. Fluoroscopy with interpretation. 2. Left heart catheterization. 3. Coronary angiography. METHOD: Risks, benefits and alternatives were discussed with the patient the patient understood, consented for the procedure. PROCEDURE The patient brought catheterization lab and placed on the catheterization table. Right wrist was prepped and draped in sterile fashion. Right wrist was anesthetized 2% lidocaine. A radial artery is cannulated 6-Nigerien 7 cm sheath was placed out difficulty. Left heart catheterization; 6-Nigerien JR-5 catheter advanced across the valve without difficulty intra into the history 120 over 11 mmHg. CORONARY ANGIOGRAPHY: 1. Left main coronary angiographically normal 2. Left anterior descending coronary has is quite tortuous angiographically normal 3. Left circumflex gives rise to an obtuse marginal branch is angiographically normal. 4. Right coronary is dominant vessel and tortuous but angiographically normal. CONCLUSION 1. Angiographically normal coronary arteries. 2. Normal left-sided filling pressures. PLAN The patient be monitored closely for any post procedural complications. Symptoms appear to be either noncardiac or potentially coronary vasospasm. He can be discharge later today and follow up with this outpatient, also to follow-up with his primary care physician. If symptoms continue may consider non-dihydropyridine calcium channel ruth. MD ARASH Alvarez/leeanne /3:29 PM /5:37 PM
[2016-12-23] MEDS ORDERED: ASPI81TA11 PO (18:56)
[2016-12-23] MEDS ORDERED: ATOR10TA15 PO (18:56)
--- NOTE | 2016-12-23 18:56 | HHI.DCPOC ---
Discharge Care Plan Diagnosis: (1) Chest pain (2) NSTEMI (non-ST elevated myocardial infarction) (3) Hypertension Goals to Promote Your Health * To prevent worsening of your condition and complications * To maintain your health at the optimal level Directions to Meet Your Goals Take your medications as prescribed Follow your dietary instruction Follow activity as directed Keep your appointments as scheduled Take your immunizations and boosters as scheduled If your symptoms worsen call your PCP, if no PCP go to Urgent Care Center or Emergency Room Smoking is Dangerous to Your Health. Avoid second hand smoke Call the 24-hour hour crisis hotline for domestic abuse at [place] MD Dec 23, 2016 18:56
--- NOTE | 2016-12-24 18:57 | EKG ---
Date Performed: 12/23/2016 Time Performed: 08:03:49 PTAGE: 46 years EKG: SINUS BRADYCARDIA BORDERLINE ECG PREVIOUS TRACING : 12/23/2016 05.06 Compared to prior tracing no significant change DOCTOR: Dank cMkenna Interpretating Date/Time 12/24/2016 18:55:46
== END 2016-12-23 19:50 | disposition home or self-care (01) | DRG 280 ==
LOC: PHED 01:33 → PHEDA 04:51 → HCIN 09:50 → OBSVTOIN 11:34
PROVIDERS: ADMIT Family Medicine; ATTEND Family Medicine
PROC: B2111ZZ Fluoroscopy of Multiple Coronary Arteries using Low Osmolar Contrast (ICD-10-PCS; 2016-12-23)
PROC: 4A023N7 Measurement of Cardiac Sampling and Pressure, Left Heart, Percutaneous Approach (ICD-10-PCS; principal; 2016-12-23 11:15)
DX: I21.4 Non-ST elevation (NSTEMI) myocardial infarction (principal); J18.9 Pneumonia, unspecified organism; D68.51 Activated protein C resistance; I11.0 Hypertensive heart disease with heart failure; I50.9 Heart failure, unspecified; D75.82 Heparin induced thrombocytopenia (HIT); I83.90 Asymptomatic varicose veins of unspecified lower extremity; Z79.82 Long term (current) use of aspirin; Z82.49 Family history of ischemic heart disease and other diseases of the circulatory system; R07.9 Chest pain, unspecified
CPT/HCPCS: 71010; 80048; 82272; 82550; 82552; 83735; 83880; 84484; 85025; 85027; 85379; 85610; 85730; 93005; 93454; 93970; 96361; 96374; C1769; C1893; J1644; J1885; J2250; J3010; J7030; Q9967